=== PATIENT | female | born 1945 | race Two or more races ===

== ENCOUNTER 2021-05-06 06:54 | Day surgery (SDC) | payer OTHER ==
[2021-05-06] MEDS ORDERED: RECTICARE30 GM TOP (09:14)
[2021-05-06] MEDS ORDERED: DICLOFENAC SODI75 MG PO (09:14)
== END 2021-05-06 10:50 | disposition home or self-care (01) ==
LOC: AMB-ENDOS 06:54
PROVIDERS: ATTEND Surgery
DX: K62.89 Other specified diseases of anus and rectum (principal); K64.8 Other hemorrhoids; Z20.822 Contact with and (suspected) exposure to COVID-19